=== PATIENT | female | born 1960 | race Caucasian/White ===

== ENCOUNTER 2019-03-14 10:11 | Observation (INO) ==
[2019-03-14] MEDS ORDERED: Naloxone 0.4 MG/ML INJ IVP PRN ×2 (12:04→15:05)
[2019-03-14] MEDS ORDERED: *HR* Promethazine 25 MG/ML VIAL IVP PRN ×2 (12:04→15:05)
[2019-03-14] MEDS ORDERED: *HR* OxyCODONE Immed Rel 5 MG TABLET PO PRN ×2 (12:04→15:05)
[2019-03-14] MEDS ORDERED: Acetaminophen 325 MG TABLET PO PRN ×2 (12:04→15:05)
[2019-03-14] MEDS ORDERED: Ondansetron 4 MG/2 ML VIAL IVP PRN ×2 (12:04→15:05)
[2019-03-14] MEDS ORDERED: Ketorolac 30 MG/ML VIAL IVP PRN ×2 (12:04→15:05)
--- NOTE | 2019-03-14 12:04 | Internal Med History&Physical ---
Date of Encounter: 03/14/19 Time of Encounter: 12:20 Internal Medicine - H&P: HPI Chief complaint: L flank pain Admitted From: Emergency Dept History of present illness: Yarelis Tracey ruben 58 F w hx COPD, KAVITA on CPAP, HTN and tachycardia, DM2, ne phrolithiasis, morbid obesity, who p/w L flank pain. Pain began yesterday, sharp, radiating down to groin, near-constant and overnight pt could not sleep due to severe pain. She endorses a hx of several kidney stones, 13 in total, for which she sees Dr Gillette outpatient and has had lithotripsy 3x before, most recently in Fall 2017. OSH ED called Dr Gillette who initially rec'd he would see her in clinic but she is fearful of intractable pain and has requested obs and inpatient urology consultation. In the ED, vitals T 99.5, HR 101, RR 20, BP 170/80s, satting 93-96% on RA. Labs notable for WBC 16, Cr 1.23, BG 225. Urine cloudy w some blood LE WBC & bacteria, reflexed to culture. CT a/p shows large 1.2 cm stone in proximal ureter. Pt given NS 1L, Rocephin 2g, dilaudid 1mg iv, and transferred to [place] for further management. Past medical, surgical, social, and family histories reviewed and updated as below, with addition to FHx of aunt w ESRD on HD but no FHx stones. Past Med Surg Social Fam HX - Past Medical History Medical history: asthma, COPD, diabetes, hypertension, other (Morbid obesity, restless leg syndrome, lumbar compression/chronic low back pain) Additional medical history: psoriasis Psychiatric history: depression - Past Surgical History Surgical History: appendectomy, cholecystectomy, hysterectomy Additional surgical history: SURGERY TO REMOVE KIDNEY STONES/LITHOTRIPSY. abdminal surgery. johanne greene 05/2008 - Social History Smoking Status: Former smoker Smokeless Tobacco Status: No Alcohol use: none Drug use: none Internal Medicine - H&P: Meds Albuterol Sulfate 2.5 mg IH Q6H PRN 08/17/17 [History] Albuterol Sulfate [Proair Respiclick] 2 puff IH Q4H PRN 08/17/17 [History] Azelastine 0.1% Nasal [place] [Astelin] 1 spray NS BID 08/17/17 [History] Bupropion HCl [Wellbutrin Xl] 300 mg PO DAILY 08/17/17 [History] Calcipotriene [Calcitrene] 1 appl TP AD 08/17/17 [History] Citalopram [CeleXA] 40 mg PO DAILY 08/17/17 [History] Furosemide [Lasix] 40 mg PO DAILY 08/17/17 [History] Gabapentin [Neurontin] 600 mg PO TID 08/17/17 [History] Insulin Aspart Prot/Insuln Asp [Novolog Mix 70-30 Vial] 20 unit SQ AD 08/17/17 [History] Liraglutide [Victoza 3-Zach] 1.8 units SQ DAILY 08/17/17 [History] Loratadine [Claritin] 10 mg PO DAILY 08/17/17 [History] Melatonin 3 mg PO HS 08/17/17 [History] Metoprolol [Lopressor] 25 mg PO DAILY 08/17/17 [History] Nitroglycerin [Nitrostat] 1 mg SL PRN PRN 08/17/17 [History] Oxygen 1 each .ROUTE AD 08/17/17 [History] Potassium Chloride [K-Tab ER] 20 meq PO DAILY 08/17/17 [History] Raloxifene [Evista] 60 mg PO DAILY 08/17/17 [History] Ranitidine HCl [Acid Capper Machine Operator] 150 mg PO BID 08/17/17 [History] Ropinirole HCl [Requip] 0.5 mg PO HS 08/17/17 [History] Fluticasone/Salmeterol [Advair 250-50 Diskus] 1 each IH DAILY 04/27/18 [History] Olopatadine HCl [Pataday] 2.5 ml OP DAILY 04/27/18 [History] Fluticasone Propionate Nasal [Flonase] 50 mcg NS AD 05/30/18 [History] Nystatin POWDER [Nystop] 1 appl TP BID 05/30/18 [History] Cyclobenzaprine [Flexeril] 10 mg PO HS 03/14/19 [History] Allergy/AdvReac Type Severity Reaction Status Date / Time Penicillins [PCN] Allergy Hives Verified 08/07/18 14:06 sulfamethoxazole Allergy Hives Verified 08/07/18 14:06 [From Bactrim] trimethoprim [From Bactrim] Allergy Hives Verified 08/07/18 14:06 exenatide [From Bydureon] AdvReac Vomiting Verified 08/07/18 14:06 morphine AdvReac Vomiting Verified 03/14/19 08:06 All Systems PM: A 10-system review of systems was performed and is negative for pertinent findings except as documented above in the HPI. - Constitutional Vitals: Vital Signs Temp Pulse Resp BP Pulse Ox 03/14/19 12:10 98.4 F 90 15 177/85 94 Exam: General: NAD, good eye contact, well appearing, morbidly obese Head: Atraumatic, normocephalic. Face symmetric Eyes: EOMI, sclerae anicteric ENT: Mucous membranes moist. Normal oral mucosa. Trachea midline. Thoracic: No visible chest wall deformities. Distant breath sounds, no obvious wheezing or crackles Cardio: Normal S1 and S2, regular rhythm, mild tachycardia Abdomen: Soft, nontender, nondistended, ++obese Extremities: Warm, well perfused. DP pulses 2+ b/l. No clubbing, cyanosis. Chronic nonpitting edema likely 2/2 venous stasis but no pitting edema Skin: Intact. No rashes, bruises, or ulcers Neuro: Awake, fully oriented. Good memory, concentration, attention. Speech fluent. CN II-XII grossly intact. Strength 5/5 in b/l UE and LE - Summary of Assessment and Plan Summary of Assessment and Plan: Yarelis Tracey ruben 58 F w hx COPD, HTN, DM2, nephrolithiasis, morbid obesity, who p/w L flank pain, CT showing 1.2 cm stone, consistent with symptomatic nephrolithiasis. Recurrent kidney stones: today has large stone causing symptoms. Overall RCRI score 0/6, low risk for cardiac adverse events. Does have COPD and KAVITA on CPAP and thus may need extubated to CPAP - Urology consulted, appreciate plan for OR today - NPO - check Ca, P, vitD, PTH - pain control w tylenol, toradol, oxycodone, and source control - supportive care with zofran, MIVF ASHLEY: baseline ~0.9, on admit is 1.23, will give fluids and monitor after surgery UTI: likely 2/2 stone - continue empiric rocephin and likely switch to keflex at d/c COPD: home inhalers KAVITA: CPAP HTN: uncontrolled likely 2/2 pain, pt reports is usually controlled on metoprolol which she takes for tachycardia IST: home metoprolol DM2: home basal, add SSI Morbid obesity: BMI 66 PPx: SCDs Tele: no Activity: up ad steven FEN: NPO then ADA after surgery, MIVF NS@125 x2L Lines: PIV Consults: Uro Code: Full Dispo: obs for painful kidney stone, anticipate 1 day, will be homegoing
[2019-03-14] MEDS ORDERED: 0.9 % Sodium Chloride 1,000 ML IVC SCH (12:15)
--- NOTE | 2019-03-14 12:16 | Urology - Consult Note ---
Date of Encounter: 03/14/19 Time of Encounter: 12:14 - Assessment and Plan (1) Bacteria in urine Current Visit: No Status: Acute Assessment and plan: Recommend to continue with broad-spectrum antimicrobial coverage until cultures return. Patient currently on Rocephin (2) Calculus of kidney Current Visit: No Status: Acute Assessment and plan: Patient be taken urgently to the operative room today for cystoscopy and left ureteral stent placement. Informed consent obtained and reviewed with the patient. Urology CN:HPI Consult date: 03/14/19 Reason for consult Urology: Hydronephrosis Requesting physician: Johnny Taylor History of present illness: Yarelis is a 58-year-old female with history of recurrent kidney stones. Patient presented to outside hospital emergency Department secondary to severe left-side d flank pain. Patient was found to have a proximal 12 mm stone. Pain was poorly controlled and patient was transferred to our facility for further evaluation. Urinalysis showed leukocytes and possible bacteria but this is a difficult sample to obtain secondary to patient's morbid obesity. Patient with slight leukocytosis. Patient's serum creatinine also slightly elevated. Past Med Surg Social Fam HX - Past Medical History Medical history: asthma, COPD, diabetes, hypertension, other (Morbid obesity, restless leg syndrome, lumbar compression/chronic low back pain) Additional medical history: psoriasis Psychiatric history: depression - Past Surgical History Surgical History: appendectomy, cholecystectomy, hysterectomy Additional surgical history: SURGERY TO REMOVE KIDNEY STONES/LITHOTRIPSY. abdminal surgery. johanne greene 05/2008 - Social History Smoking Status: Former smoker Smokeless Tobacco Status: No Alcohol use: none Drug use: none Medications and Allergies Albuterol Sulfate 2.5 mg IH Q6H PRN 08/17/17 [History] Albuterol Sulfate [Proair Respiclick] 2 puff IH Q4H PRN 08/17/17 [History] Azelastine 0.1% Nasal [place] [Astelin] 1 spray NS BID 08/17/17 [History] Bupropion HCl [Wellbutrin Xl] 300 mg PO DAILY 08/17/17 [History] Calcipotriene [Calcitrene] 1 appl TP AD 08/17/17 [History] Citalopram [CeleXA] 40 mg PO DAILY 08/17/17 [History] Furosemide [Lasix] 40 mg PO DAILY 08/17/17 [History] Gabapentin [Neurontin] 600 mg PO TID 08/17/17 [History] Insulin Aspart Prot/Insuln Asp [Novolog Mix 70-30 Vial] 20 unit SQ AD 08/17/17 [History] Liraglutide [Victoza 3-Zach] 1.8 units SQ DAILY 08/17/17 [History] Loratadine [Claritin] 10 mg PO DAILY 08/17/17 [History] Melatonin 3 mg PO HS 08/17/17 [History] Metoprolol [Lopressor] 25 mg PO DAILY 08/17/17 [History] Nitroglycerin [Nitrostat] 1 mg SL PRN PRN 08/17/17 [History] Oxygen 1 each .ROUTE AD 08/17/17 [History] Potassium Chloride [K-Tab ER] 20 meq PO DAILY 08/17/17 [History] Raloxifene [Evista] 60 mg PO DAILY 08/17/17 [History] Ranitidine HCl [Acid Home Housekeeper] 150 mg PO BID 08/17/17 [History] Ropinirole HCl [Requip] 0.5 mg PO HS 08/17/17 [History] Fluticasone/Salmeterol [Advair 250-50 Diskus] 1 each IH DAILY 04/27/18 [History] Olopatadine HCl [Pataday] 2.5 ml OP DAILY 04/27/18 [History] Fluticasone Propionate Nasal [Flonase] 50 mcg NS AD 05/30/18 [History] Nystatin POWDER [Nystop] 1 appl TP BID 05/30/18 [History] Cyclobenzaprine [Flexeril] 10 mg PO HS 03/14/19 [History] Allergy/AdvReac Type Severity Reaction Status Date / Time Penicillins [PCN] Allergy Hives Verified 08/07/18 14:06 sulfamethoxazole Allergy Hives Verified 08/07/18 14:06 [From Bactrim] trimethoprim [From Bactrim] Allergy Hives Verified 08/07/18 14:06 exenatide [From Bydureon] AdvReac Vomiting Verified 08/07/18 14:06 morphine AdvReac Vomiting Verified 03/14/19 08:06 Review of Systems - Constitutional no chills, no fever(s) - EENT Nose, mouth and throat: no as per HPI - Cardiovascular no dyspnea, no edema - Respiratory no dyspnea - Gastrointestinal abdominal pain, nausea, no vomiting - Musculoskeletal back pain - Integumentary no rash, no swelling - Neurological no sensory deficit - Psychiatric no confusion, no depression - Hematologic/Lymphatic no lymphadenopathy - Allergic/Immunologic no wheezing Exam Initial Vital Signs Temp Pulse Resp BP Pulse Ox 98.4 F 90 15 177/85 94 03/14/19 12:10 03/14/19 12:10 03/14/19 12:10 03/14/19 12:10 03/14/19 12:10 General/Neuological: alert and oriented x 3 Eyes: normal pupils, non-icteric Neck: no lymphadenopathy noted, supple to touch Cardiovascular: RRR, no murmurs Respiratory: normal respiratory effort, clear bilaterally ABD: soft, nontender, no masses palpated, good bowel sounds Back: no pain on percussion bilaterally Skin: no rashes noted Musculoskeletal: normal gait, FROMx4 Urology Results - Labs All other labs normal. - Imaging CT scan - abdomen: image reviewed CT scan - pelvis: image reviewed
[2019-03-14] MEDS ORDERED: Albuterol 2.5 MG/3 ML NEBULIZER IH ONE (12:33)
--- NOTE | 2019-03-14 12:41 | Anesthesia Evaluation PreOp ---
Date of Encounter: 03/14/19 Time of Encounter: 12:40 - Past History Planned Operation: Cystoscopy Stent Left Ureter Cardiac History: HTN, Hyperlipidemia Pulmonary History: COPD, KAVITA Dx (uses CPAP) MOLDING MACHINE OPERATOR HELPER History: Other (Restless Leg, Chronic Back Pain) Other Medical History: Diabetes Type II, Other (Morbid Obesity BMI 66) Anesthesia History: No Prior Anesthetic Complications Alcohol Use: none Drug use: none Medications and Allergies Albuterol Sulfate 2.5 mg IH Q6H PRN 08/17/17 [History] Albuterol Sulfate [Proair Respiclick] 2 puff IH Q4H PRN 08/17/17 [History] Azelastine 0.1% Nasal [place] [Astelin] 1 spray NS BID 08/17/17 [History] Bupropion HCl [Wellbutrin Xl] 300 mg PO DAILY 08/17/17 [History] Calcipotriene [Calcitrene] 1 appl TP AD 08/17/17 [History] Citalopram [CeleXA] 40 mg PO DAILY 08/17/17 [History] Furosemide [Lasix] 40 mg PO DAILY 08/17/17 [History] Gabapentin [Neurontin] 600 mg PO TID 08/17/17 [History] Insulin Aspart Prot/Insuln Asp [Novolog Mix 70-30 Vial] 20 unit SQ AD 08/17/17 [History] Liraglutide [Victoza 3-Zach] 1.8 units SQ DAILY 08/17/17 [History] Loratadine [Claritin] 10 mg PO DAILY 08/17/17 [History] Melatonin 3 mg PO HS 08/17/17 [History] Metoprolol [Lopressor] 25 mg PO DAILY 08/17/17 [History] Nitroglycerin [Nitrostat] 1 mg SL PRN PRN 08/17/17 [History] Oxygen 1 each .ROUTE AD 08/17/17 [History] Potassium Chloride [K-Tab ER] 20 meq PO DAILY 08/17/17 [History] Raloxifene [Evista] 60 mg PO DAILY 08/17/17 [History] Ranitidine HCl [Acid Engineering Leader] 150 mg PO BID 08/17/17 [History] Ropinirole HCl [Requip] 0.5 mg PO HS 08/17/17 [History] Fluticasone/Salmeterol [Advair 250-50 Diskus] 1 each IH DAILY 04/27/18 [History] Olopatadine HCl [Pataday] 2.5 ml OP DAILY 04/27/18 [History] Fluticasone Propionate Nasal [Flonase] 50 mcg NS AD 05/30/18 [History] Nystatin POWDER [Nystop] 1 appl TP BID 05/30/18 [History] Cyclobenzaprine [Flexeril] 10 mg PO HS 03/14/19 [History] Allergy/AdvReac Type Severity Reaction Status Date / Time Penicillins [PCN] Allergy Hives Verified 08/07/18 14:06 sulfamethoxazole Allergy Hives Verified 08/07/18 14:06 [From Bactrim] trimethoprim [From Bactrim] Allergy Hives Verified 08/07/18 14:06 exenatide [From Bydureon] AdvReac Vomiting Verified 08/07/18 14:06 morphine AdvReac Vomiting Verified 03/14/19 08:06 - Meds/Allergy Pre-op Review Medications Reviewed: Yes Allergies Reviewed: Yes Beta Blockers on Current Med List: No Anesthesia Results - Labs Laboratory Tests 03/14/19 03/14/19 08:30 08:30 Hgb 13.5 Hct 41.2 Plt Count 266 Sodium 135 L Potassium 4.1 BUN 24 H Creatinine 1.23 H - Imaging EKG: report reviewed (Sinus Tach) Anesthesia Exam O2 Sat O2 Sat by Pulse Oximetry 95 O2 Sat by Pulse Oximetry 94 Vital Signs Temp Pulse Resp BP Pulse Ox 98.4 F 90 15 177/85 94 03/14/19 12:10 03/14/19 12:10 03/14/19 12:10 03/14/19 12:10 03/14/19 12:10 Height: 4'9 Weight: 340 lbs NPO (# of Hours): MN Pain Scale: 0 - HEENT Pupil (Motor): Pupils equal, EOMI Mallampati: III Teeth: Edentulous Oral Opening: Less than or equal to 3 - MOLDING MACHINE OPERATOR HELPER LOC: Oriented MOLDING MACHINE OPERATOR HELPER Motor: Normal RUE, Normal LUE, Normal RLE, Normal LLE, Normal Face MOLDING MACHINE OPERATOR HELPER Sensory: Normal: RUE, LUE, RLE, LLE, Face - Cardiac Rhythm: Regular Murmur: None JVD: No Carotid Bruit: No - Pulmonary Breath Sounds: bilateral Clear Respiratory Effort: Symmetrical Anesthesia Assess/Plan ASA Score: 3 (MO HTN KAVITA COPD) Level of consciousness: Cooperative, Oriented Anesthetic Plan: General Autologous Blood: No Monitoring Plan: Standard Monitors Recovery Plan: PACU (Discussed GA, agrees to proceed)
[2019-03-14] MEDS ORDERED: Lidocaine -MPF 2% 2 ML VIAL ONE (13:04)
[2019-03-14] MEDS ORDERED: *HR* Propofol 200 MG/20 ML VIAL IVP ONE (13:04)
[2019-03-14] MEDS ORDERED: *HR* Midazolam HCl 2 MG/2 ML VIAL ONE (13:04)
[2019-03-14] MEDS ORDERED: Dexamethasone 4 MG/ML VIAL ONE (13:04)
[2019-03-14] MEDS ORDERED: *HR* Succinylcholine 200 MG/10 ML VIAL IVP ONE (13:04)
[2019-03-14] MEDS ORDERED: *HR* FentaNYL (PF) 100 MCG/2 ML VIAL ONE (13:04)
[2019-03-14] MEDS ORDERED: Ondansetron 4 MG/2 ML VIAL ONE (13:04)
--- NOTE | 2019-03-14 13:19 | Operative Note ---
Date of procedure: 03/14/19 Pre-op diagnosis: left proximal ureteral stone Post-op diagnosis: same Procedure: Cystoscopy and left 4.8 x 26 cm ureteral stent placement Anesthesia: GETA Surgeon: Robin Gillette Was there an yard assistant present: No Estimated blood loss (cc): 0 Specimen: none Condition: stable Disposition: PACU Procedure in Detail: Patient was prepped and draped in normal sterile fashion. Timeout procedure performed. I then inserted the cystoscope into the patient's bladder. I was able to cannulate the left ureteral orifice using a Glidewire. This was advanced into the left kidney using fluoroscopy. I then placed a 4.8 x 26 cm stent with good curl seen in the left kidney and in the bladder. Bladder was drained and procedure was ended.
--- NOTE | 2019-03-14 14:30 | Anesthesia Evaluation Post Op ---
Date of Encounter: 03/14/19 Time of Encounter: 14:15 - Vital Signs Vital Signs: Vital Signs/O2 Sat/Glucose, Most Current Temp Pulse Resp BP Pulse Ox 03/14/19 13:46 97.8 F 106 20 126/56 96 03/14/19 13:36 102 20 111/79 95 03/14/19 13:26 107 18 145/78 95 03/14/19 13:16 98.4 F 115 22 144/85 92 03/14/19 12:37 97.7 F 94 18 160/90 95 03/14/19 12:10 98.4 F 90 15 177/85 94 - Lungs Lungs: Clear Ascult./Percussion - Airway Airway: Non-obstructed - Cardiovascular Regular Rate - Mental Status Mental Status: Alert & Oriented, Answers Appropriately - Pain Pain Scale: 0 - Nausea Vomiting Nausea Vomiting: Not Present - Hydration Hydration: Ice chips - Discharge PostOp Status: Transfer Patient to floor
[2019-03-14] MEDS: 0.9 % Sodium Chloride 1,000 ML IVC SCH (17:00)
[2019-03-14] MEDS: Insulin NPH/REG 70/30 100 UNIT/ML (x5UNIT) SQ SCH (18:08)
[2019-03-15] MEDS: 0.9 % Sodium Chloride 1,000 ML IVC SCH (01:10)
[2019-03-15 04:32] LABS: Hematocrit 39.5 % (35.3-44.9); Hemoglobin 12.4 g/dL (11.5-15.4); Mean Corpuscular HGB Conc 31.4 g/dL (31.6-35.5); Mean Corpuscular Hemoglobin 28.5 pg (28.0-33.3); Mean Corpuscular Volume 90.8 fL (83.0-100.0); Mean Platelet Volume 9.5 fL (9.4-12.4); Platelet Count 238 K/mcL (140-400); Red Blood Count 4.35 M/mcL (3.82-4.97); Red Cell Distribution Width 13.2 % (11.5-14.5)
[2019-03-15 04:54] LABS: Albumin 3.4 g/dL (3.5-5.7); BUN/Creatinine Ratio 25 (6-26); Blood Urea Nitrogen 20 mg/dL (6-20); Carbon Dioxide 25 mEq/L (23-29); Chloride 104 mEq/L (98-107); Glucose 211 mg/dL (70-105); Magnesium 1.9 mg/dL (1.6-2.6); Osmolality,Calculated 295 (280-300); Phosphorous 2.5 mg/dL (2.7-4.5); Potassium 4.5 mEq/L (3.5-5.1); Sodium 138 mEq/L (136-145); eGFR For African Americans > 60 (> 60); eGFR For Non-African Americans > 60 (> 60)
--- NOTE | 2019-03-15 09:24 | Urology Progress Note ---
<Dena Russo N - Last Filed: 03/15/19 09:22> Date of Encounter: 03/15/19 Time of Encounter: 08:30 - Assessment and Plan (1) Bacteria in urine Current Visit: Yes Status: Acute (2) Calculus of kidney Current Visit: Yes Status: Acute Assessment and plan: Patient is a 58-year-old female who presents one day status post cystoscopy and left ureteral stent placement. Patient is recovering very well postoperatively. Her vital signs have remained stable and afebrile. Final urine culture is pending. We discussed outpatient follow-up with Dr. Gillette within 2-4 weeks of discharge, and patient verbalized understanding. Progress Note Subjective: no new complaints, feels better Narrative: POD #1. Patient seen and examined sitting upright in bed in no apparent distress. Tolerating normal diet without nausea or vomiting. Patient is voiding without difficulty and is experiencing only minor stent discomfort. She denies any fever, chills or flank pain. Objective Initial Vital Signs Temp Pulse Resp BP Pulse Ox 98.4 F 90 15 177/85 94 03/14/19 12:10 03/14/19 12:10 03/14/19 12:10 03/14/19 12:10 03/14/19 12:10 - General physical appearance Present: no distress, no pain, obese - Respiratory Present: normal expansion, normal respiratory effort - Abdomen Present: soft, non tender. Absent: distended - Integumentary Present: no rash, no abnormal pigmentation - Musculoskeletal Present: normal posture - Psychiatric Present: oriented to time, oriented to person, oriented to place, speech is normal, memory intact - Labs 03/15/19 04:06 03/15/19 04:06 Diabetes panel 03/15/19 Range/Units 04:06 Sodium 138 (136-145) mEq/L Potassium 4.5 (3.5-5.1) mEq/L Chloride 104 (98-107) mEq/L Carbon Dioxide 25 (23-29) mEq/L BUN 20 (6-20) mg/dL Creatinine 0.81 (0.60-1.20) mg/dL Glucose 211 H (70-105) mg/dL Calcium 9.0 (8.6-10.3) mg/dL Albumin 3.4 L (3.5-5.7) g/dL Calcium panel 03/15/19 Range/Units 04:06 Calcium 9.0 (8.6-10.3) mg/dL Phosphorus 2.5 L (2.7-4.5) mg/dL Albumin 3.4 L (3.5-5.7) g/dL Pituitary panel 03/15/19 Range/Units 04:06 Sodium 138 (136-145) mEq/L Potassium 4.5 (3.5-5.1) mEq/L Chloride 104 (98-107) mEq/L Carbon Dioxide 25 (23-29) mEq/L BUN 20 (6-20) mg/dL Creatinine 0.81 (0.60-1.20) mg/dL Glucose 211 H (70-105) mg/dL Calcium 9.0 (8.6-10.3) mg/dL Adrenal panel 03/15/19 Range/Units 04:06 Sodium 138 (136-145) mEq/L Potassium 4.5 (3.5-5.1) mEq/L Chloride 104 (98-107) mEq/L Carbon Dioxide 25 (23-29) mEq/L BUN 20 (6-20) mg/dL Creatinine 0.81 (0.60-1.20) mg/dL Glucose 211 H (70-105) mg/dL Calcium 9.0 (8.6-10.3) mg/dL Albumin 3.4 L (3.5-5.7) g/dL Consult Discharge Plan - Plan Instructions: Acute Kidney Injury (DC), Gastroenteritis (DC), Chronic Obstructi ve Pulmonary Disease (DC), Ureteral Stent Placement (DC) Referrals: Robin Gillette MD [Partnered Physician] - (2 weeks Office notified. Will call date and time of appointment. ) Michelle Johnston MD [Primary Care Provider] - Prescriptions: Ciprofloxacin HCl [Cipro] 500 mg PO BID 10 Days #20 tablet Lactobacillus [Culturelle] 1 each PO DAILY 30 Days #30 [email or web address] <Robin Gillette - Last Filed: 03/15/19 16:01> Date of Encounter: 03/15/19 - Assessment and Plan (1) Bacteria in urine Current Visit: Yes Status: Acute (2) Calculus of kidney Current Visit: Yes Status: Acute Progress Note Narrative: patient discussed with but not seen. agree with plan. patient to be discharged home. will be scheduled for return to the OR Objective Initial Vital Signs Temp Pulse Resp BP Pulse Ox 98.4 F 90 15 177/85 94 03/14/19 12:10 03/14/19 12:10 03/14/19 12:10 03/14/19 12:10 03/14/19 12:10 - Labs 03/15/19 04:06 03/15/19 04:06 Diabetes panel 03/15/19 Range/Units 04:06 Sodium 138 (136-145) mEq/L Potassium 4.5 (3.5-5.1) mEq/L Chloride 104 (98-107) mEq/L Carbon Dioxide 25 (23-29) mEq/L BUN 20 (6-20) mg/dL Creatinine 0.81 (0.60-1.20) mg/dL Glucose 211 H (70-105) mg/dL Calcium 9.0 (8.6-10.3) mg/dL Albumin 3.4 L (3.5-5.7) g/dL Calcium panel 03/15/19 03/15/19 Range/Units 04:06 04:06 Calcium 9.0 (8.6-10.3) mg/dL Phosphorus 2.5 L (2.7-4.5) mg/dL Albumin 3.4 L (3.5-5.7) g/dL 25-OH Vitamin D Total 20 L (30-80) ng/mL Pituitary panel 03/15/19 Range/Units 04:06 Sodium 138 (136-145) mEq/L Potassium 4.5 (3.5-5.1) mEq/L Chloride 104 (98-107) mEq/L Carbon Dioxide 25 (23-29) mEq/L BUN 20 (6-20) mg/dL Creatinine 0.81 (0.60-1.20) mg/dL Glucose 211 H (70-105) mg/dL Calcium 9.0 (8.6-10.3) mg/dL Adrenal panel 03/15/19 Range/Units 04:06 Sodium 138 (136-145) mEq/L Potassium 4.5 (3.5-5.1) mEq/L Chloride 104 (98-107) mEq/L Carbon Dioxide 25 (23-29) mEq/L BUN 20 (6-20) mg/dL Creatinine 0.81 (0.60-1.20) mg/dL Glucose 211 H (70-105) mg/dL Calcium 9.0 (8.6-10.3) mg/dL Albumin 3.4 L (3.5-5.7) g/dL
[2019-03-15] MEDS: Insulin NPH/REG 70/30 100 UNIT/ML (x5UNIT) SQ SCH (09:36)
--- NOTE | 2019-03-15 11:08 | Discharge Summary ---
<Emanuel Rangel Alem - Last Filed: 03/15/19 17:23> - NOTES TO OUTPATIENT PROVIDER Notes to Outpatient Provider: Had left ureteral stent placed with Dr Gillette on 03/14. Given prescription for 10 days of Ciprofloxacin per Urology recs. Will require follow up with urology in 2 weeks Date of Encounter: 03/15/19 Time of Encounter: 10:00 - Discharge Diagnosis (1) Calculus of kidney Priority: Primary Status: Acute (2) Diabetes 1.5, managed as type 1 Priority: Secondary Status: Acute (3) Hypertension Priority: Secondary Status: Acute Qualifiers: Hypertension type: essential hypertension Qualified Code(s): I10 - Essential (primary) hypertension (4) KAVITA (obstructive sleep apnea) Priority: Secondary Status: Acute (5) COPD (chronic obstructive pulmonary disease) Priority: Secondary Status: Acute Qualifiers: COPD type: unspecified COPD Qualified Code(s): J44.9 - Chronic obstructive pulmonary disease, unspecified (6) ASHLEY (acute kidney injury) Priority: Secondary Status: Acute Hospital course: Ms. Tracey is a 58 year old female who presented to the [place] ER on 03/14 with complaints of left flank pain for 2 days. He described the pain as severe with nothing that exacerbated or relieved her pain. States the pain radiated into the groin. Reports nausea without vomiting. Denied any chest pain, SOB fever, constipation, diarrhea, or fever. The patient has a history of 13 previous kidney stones which required multiple urology procedures and lithotripsy. She follows with Dr. Gillette for management of these recurrent stones. Patient also has a further PMH of asthma, COPD, diabetes, hypertension, morbid obesity, restless leg syndrome, lumbar compression/chronic low back pain, appendectomy, cholecystectomy, and hysterectomy. Vitals in the ER as follows temp 99.5 pulse 101 RR 20 BP 173/86 SpO2 96% on room air UA in the emergency room showed moderate bacteria, moderate blood, and pyuria with elevated WBC. The urine was also sent for culture. CBC showed a leukocytosis of 15.8, Hgb 13.5 and platelets of 266. BMP showed a BUN 24, and creatinine of 1.23 (which was noted to be increased from her baseline of 0.9), and calcium of 9.3. CT of the abdomen and pelvis without contrast revealed no infiltrate of the lung, as well as normal liver, spleen, and pancreas. A 8 mm wide and 12 mm high left ureteropelvic stone with secondary hydronephrosis was noted, but no other acute intra-abdominal process was identified. She was given 1L IVF, diluaudid 1 mg IV, as well as 2g rocephin empirically. Dr. Gillette was contacted and a plan was discussed with the patent that she would be transferred to [facility] for further management. She was also made NPO with plans for further urologic intervention while at [facility]. Once the pt arrived to [facility], urology was consulted. Dr Gillette performed a cystoscopy on 03/14 and placed a left urethral stent without complication. The post-operative period was grossly unremarkable. Subsequent labs were significant for an improving leukocytosis likely due to pyelonephritis behind obstructing stone. Creatinine returned to 0.81 and eGFR >60 on 03/15 along with continued adequate urine output. Labs pending at time of discharge included PTH, Vitamin D, and urine culture. The urology team recommended a 10 day course of Ciprofloxacin, and outpatient follow up in 2-4 weeks. The patient was noted to have some blood tinged urine at time of discharge, but reported her pain had completely resolved. Recommend follow up with her PCP in 1 week. Discharge discussed with: patient, family, nurse, [employer] consultant - Time Spent with Patient Total time spent providing and/or coordinating discharge services: - Discharge Medications Prescriptions: New Ciprofloxacin HCl [Cipro] 500 mg PO BID 10 Days #20 tablet Lactobacillus [Culturelle] 1 each PO DAILY 30 Days #30 cap.[email or web address] Continued Atorvastatin Calcium 1 tab PO DAILY Citalopram Hydrobromide [Citalopram HBr] 1 tab PO DAILY Metoprolol Succinate [Toprol Xl] 25 mg PO DAILY Raloxifene [Evista] 60 mg PO DAILY Bupropion HCl [Wellbutrin Xl] 300 mg PO DAILY Albuterol Sulfate 2.5 mg IH Q6H PRN PRN Reason: as needed Albuterol Sulfate [Proair Respiclick] 2 puff IH Q4H PRN PRN Reason: as needed Potassium Chloride [K-Tab ER] 20 meq PO DAILY Furosemide [Lasix] 40 mg PO DAILY Ropinirole HCl [Requip] 0.5 mg PO HS Nitroglycerin [Nitrostat] 1 mg SL Q5MIN PRN PRN Reason: Chest Pain Liraglutide [Victoza 3-Zach] 1.8 units SQ DAILY Calcipotriene [Calcitrene] 1 appl TP BID Azelastine 0.1% Nasal [place] [Astelin] 1 spray NS BID Ranitidine HCl [Acid Inspector Process] 150 mg PO BID Insulin Aspart Prot/Insuln Asp [Novolog Mix 70-30 Vial] 30 unit SQ BID Gabapentin [Neurontin] 600 mg PO TID Loratadine [Claritin] 10 mg PO DAILY Melatonin 3 mg PO HS Fluticasone/Salmeterol [Advair 250-50 Diskus] 1 each IH DAILY Nystatin POWDER [Nystop] 1 appl TP BID Fluticasone Propionate Nasal [Flonase] 50 mcg NS DAILY Cyclobenzaprine [Flexeril] 10 mg PO HS PRN PRN Reason: Muscle Spasm Home Medications: Albuterol Sulfate 2.5 mg IH Q6H PRN 08/17/17 [History] Albuterol Sulfate [Proair Respiclick] 2 puff IH Q4H PRN 08/17/17 [History] Azelastine 0.1% Nasal [place] [Astelin] 1 spray NS BID 08/17/17 [History] Bupropion HCl [Wellbutrin Xl] 300 mg PO DAILY 08/17/17 [History] Calcipotriene [Calcitrene] 1 appl TP BID 08/17/17 [History] Furosemide [Lasix] 40 mg PO DAILY 08/17/17 [History] Gabapentin [Neurontin] 600 mg PO TID 08/17/17 [History] Insulin Aspart Prot/Insuln Asp [Novolog Mix 70-30 Vial] 30 unit SQ BID 08/17/17 [History] Liraglutide [Victoza 3-Zach] 1.8 units SQ DAILY 08/17/17 [History] Loratadine [Claritin] 10 mg PO DAILY 08/17/17 [History] Melatonin 3 mg PO HS 08/17/17 [History] Nitroglycerin [Nitrostat] 1 mg SL Q5MIN PRN 08/17/17 [History] Potassium Chloride [K-Tab ER] 20 meq PO DAILY 08/17/17 [History] Raloxifene [Evista] 60 mg PO DAILY 08/17/17 [History] Ranitidine HCl [Acid Inspector Process] 150 mg PO BID 08/17/17 [History] Ropinirole HCl [Requip] 0.5 mg PO HS 08/17/17 [History] Fluticasone/Salmeterol [Advair 250-50 Diskus] 1 each IH DAILY 04/27/18 [History] Fluticasone Propionate Nasal [Flonase] 50 mcg NS DAILY 05/30/18 [History] Nystatin POWDER [Nystop] 1 appl TP BID 05/30/18 [History] Cyclobenzaprine [Flexeril] 10 mg PO HS PRN 03/14/19 [History] Atorvastatin Calcium 1 tab PO DAILY 03/15/19 [History] Ciprofloxacin HCl [Cipro] 500 mg PO BID 10 Days #20 tablet 03/15/19 [Rx] Citalopram Hydrobromide [Citalopram HBr] 1 tab PO DAILY 03/15/19 [History] Lactobacillus [Culturelle] 1 each PO DAILY 30 Days #30 cap.sprink 03/15/19 [Rx] Metoprolol Succinate [Toprol Xl] 25 mg PO DAILY 03/15/19 [History] Allergies/Adverse Reactions: Allergy/AdvReac Type Severity Reaction Status Date / Time Penicillins [PCN] Allergy Hives Verified 03/15/19 10:53 sulfamethoxazole Allergy Hives Verified 03/15/19 10:53 [From Bactrim] trimethoprim [From Bactrim] Allergy Hives Verified 03/15/19 10:53 exenatide [From Bydureon] AdvReac Vomiting Verified 03/15/19 10:53 morphine AdvReac Vomiting Verified 03/15/19 10:53 Date of admission: 03/14/19 11:52 Primary care physician: Michelle Johnston Consults: 03/14/19 12:16 Consult to Urology [CONS] Routine Consulting Provider: [facility] Reason for Consult: kidney stone Call Completed: Yes - Constitutional Vitals: Temp Pulse Resp BP Pulse Ox 98.3 F 75 20 126/61 99 03/15/19 07:58 03/15/19 07:58 03/15/19 07:58 03/15/19 07:58 03/15/19 07:58 General appearance: Present: cooperative, A&O X 3, no acute distress, obese, answers questions appropriately Exam: General: obese female in no acute distress Head: NCAT Eyes: PERRL, EOMI, sclera anicteric, conjunctiva pink Neck: supple, trachea midline Lungs: CTA bilaterally. non-labored breathing. No wheezes, rales, or rhonchi Heart: RRR +s1 +s2 No murmurs, clicks, or rubs GI: abdomen soft, non-tender, non-distended. No CVA tenderness Extremities: warm, radial pulses palpable and symmetrical. No cyanosis or calf tenderness. Neuro: A&Ox3. No focal deficits. No speech difficulty or abnormality. Skin: warm, dry, intact - Patient Status Disposition: Home Health Service Condition: Good Functional capacity at discharge: independent ambulation Overall status at discharge: patient is back to baseline - Discharge Instructions Instructions: Acute Kidney Injury (DC), Gastroenteritis (DC), Chronic Obstructive Pulmonary Disease (DC), Ureteral Stent Placement (DC) Follow Up With: Robin Gillette MD [Partnered Physician] - (2 weeks Office notified. Will call date and time of appointment. ) Michelle Johnston MD [Primary Care Provider] - - Diet and Activity Activity: increase activity as tolerated, resume usual activities as tolerated, wear oxygen at night Diet: regular diet <Danny Gaytan - Last Filed: 03/16/19 00:38> Date of Encounter: 03/16/19 - Discharge Diagnosis (1) Diabetes 1.5, managed as type 1 Status: Acute (2) COPD (chronic obstructive pulmonary disease) Status: Acute Qualifiers: COPD type: unspecified COPD Qualified Code(s): J44.9 - Chronic obstructive pulmonary disease, unspecified (3) Hypertension Status: Acute Qualifiers: Hypertension type: essential hypertension Qualified Code(s): I10 - Essential (primary) hypertension (4) Calculus of kidney Status: Acute (5) KAVITA (obstructive sleep apnea) Status: Acute (6) ASHLEY (acute kidney injury) Status: Acute Hospital course: Ms. Tracey is a 58 year old female - Time Spent with Patient Total time spent providing and/or coordinating discharge services: Date of admission: 03/14/19 11:52 Primary care physician: Michelle Johnston Consults: 03/14/19 12:16 Consult to Urology [CONS] Routine Consulting Provider: Urology [facility] Reason for Consult: kidney stone Call Completed: Yes - Constitutional Vitals: Temp Pulse Resp BP Pulse Ox 97.8 F 78 20 122/71 97 03/15/19 12:14 03/15/19 12:14 03/15/19 12:14 03/15/19 12:14 03/15/19 12:14 - Attending Attestation I saw evaluated and examined this patient and reviewed objective data including labs and my medical decision-making was reviewed with the Resident Physician. I agree with the documented findings, disposition and treatment plan as described except to any changes set forth below. We independently had [id number] contact with the patient.
[2019-03-15 12:18] VITALS: BP 122/71
== END 2019-03-15 17:37 | disposition home health service (06) ==
LOC: 3ANU → SUATTDRO 11:52
PROVIDERS: ADMIT Internal Medicine; ATTEND Student in an Organized Health Care Education/Training Program